=== PATIENT | male | born 1950 | race Hispanic/Latino ===

== ENCOUNTER 2021-01-02 06:42 | Day surgery (SDC) | payer OTHER ==
[2021-01-02] MEDS ORDERED: TROPICAMIDE 1% OPTH 3 ML BOT ONE (07:32)
[2021-01-02] MEDS ORDERED: BALANCED SALT IRRIG PLAIN 500 ML BTL IRR ONE (07:32)
[2021-01-02] MEDS ORDERED: EPINEPHRINE/PF 1 MG/ML AMP ONE (07:32)
[2021-01-02] MEDS ORDERED: TETRACAINE HCL 0.5% 4ML OPTH ONE (07:32)
[2021-01-02] MEDS ORDERED: NA CHLORIDE 0.9% 1,000 ML ONE (07:33)
[2021-01-02] MEDS ORDERED: CYCLOPENTOLATE 2% OPTH 2 ML ONE (07:33)
[2021-01-02] MEDS ORDERED: KETOROLAC OPTHALMIC 5 ML BOT ONE (07:33)
[2021-01-02] MEDS ORDERED: POVIDONE-IODINE 5% EYE DROPS ONE (07:33)
[2021-01-02] MEDS ORDERED: MOXIFLOXACIN HCL 0.5% 3ML OPTH OPTH ONE (07:33)
[2021-01-02] MEDS ORDERED: PHENYLEPHRINE 2.5% OPTH 2 ML ONE (07:34)
[2021-01-02] MEDS ORDERED: LIDOCAINE HCL/PF 3.5% OPTH GEL ONE ×2 (07:55→07:56)
[2021-01-02] MEDS ORDERED: LIDOCAINE 1% MPF 5 ML VIAL ONE (08:06)
[2021-01-02] MEDS ORDERED: propofoL 200 MG/20 ML VIAL IV ONE (08:06)
[2021-01-02] MEDS ORDERED: FENTANYL CITR 100 MCG/2 ML ONE (08:06)
[2021-01-02] MEDS: TOBRADEX 0.3-0.1% OPTH OINTMENT ONE ×2 (08:09→08:40)
[2021-01-02] MEDS: DUOVISC 1 KIT OPTH ONE ×4 (08:15→08:38)
[2021-01-02] MEDS ORDERED: dexAMETHasone 10 MG/ML VIAL ONE (08:18)
[2021-01-02] MEDS ORDERED: KETOROLAC 30 MG/ML INJ ONE (08:18)
[2021-01-02] MEDS ORDERED: MANNITOL 25% 12.5 GM/50 ML VIAL IV ONE (08:27)
[2021-01-02] MEDS ORDERED: Phenylephrine HCl 10 MG/ML 1 ML VIAL ONE (08:32)
[2021-01-02] MEDS ORDERED: ONDANSETRON 4 MG/2 ML VIAL ONE (08:32)
[2021-01-02] MEDS ORDERED: NS 0.9% VIAL 10 ML ONE (08:33)
[2021-01-02] MEDS ORDERED: NA CHLORIDE 0.9% 50 ML ONE (09:08)
[2021-01-02 09:35] VITALS: BP 115/71; TEMP 98.4; O2SAT 100
--- NOTE | 2021-01-02 10:42 | OP ---
Date of Procedure: 01/02/2021 Surgeon: Charles Galan MD Preoperative Diagnosis: Visually significant cataract, right eye. Postoperative Diagnosis: Visually significant cataract, right eye. Procedure Performed: Complex cataract extraction of right eye with placement of intraocular hooks se condary to poor dilation. Procedure In Detail: After being properly identified in the preoperative holding area, the patient w as taken back to the operating room where a time-out was performed. The patient was then prepped and draped in the normal sterile fashion. Examination underneath the operating microscope revealed a po bita dilated pupil, which was anticipated given the preoperative evaluation in the office. Therefore , the decision to use iris hooks was made and the globe was grasped with a pair of 0.12 forceps and 6 paracentesis wounds were made, 1 in the 12 o'clock and 6 o'clock positions for secondary instrumenta tion and then 1 in the each quadrant for placement of the iris hooks. Viscoat was instilled into the anterior chamber and then iris hooks were placed in each of the paracentesis ports as noted above an d the iris looped and drawn taut to enlarge the pupil. The globe was then dressed again with another pair of 0.12 forceps and a tight plantar incision made temporally using a 2.75 mm keratome. A jem nuous curvilinear capsulorrhexis was created with a cystotome and completed with Utrata forceps. Hyd rodissection, hydrodelineation of the lens nucleus was carried out using a Holly cannula. The lens w as thereafter removed in a standard divide and conquer technique. Of significant note after the fernando luis enrique of the first quadrant, there was noted to be an anterior capsule split nasally and additional Vis coat was added. The remaining quadrants were removed uneventfully with careful attention had to redu ce any excess manipulation or put any strain on the capsular tear. Once all 4 quadrants had been rem luis eduardo, prior to the phaco handpiece being removed, additional viscoelastic was added. Very little cor tical material remained, but that was removed using bimanual irrigation and aspiration handpieces. T he capsular split although noted still amenable either sufficient capsular support to support the in the bag lens that we had selected previously and a 23.5 power, model [id number] lens, serial #[id number] was placed into the capsular bag. Because of the rotation of the split, the lens haptics were rotat ed and so they were oriented in the 12 and 6 o'clock position rather than my usual preferred 3 and 9 with the lens centered well and experience good support. The remaining viscoelastic was gently remov ed using bimanual irrigation and aspiration handpiece. Once all 4 hooks had been removed and a singl e 10-0 nylon suture was placed through the temporal incision. The temporal iris did prolapse several times during the procedure and there was a little iris transillumination defect noted temporally. I n addition to the suture being placed in order to equalize the pressure of the globe, I ordered IV ma nnitol to be given to the patient over the next 30-60 minutes and he was taken to the postoperative h olding area in stable condition having tolerated the procedure well. Drapes had been removed and a p ressure patch applied over TobraDex ointment. He is to follow up with myself, Dr. Charles Galan, at the [facility] tomorrow morning. There were no complications other than the anterior capsule split noted above. No specimens were sent. No drains were placed. Implants are as above as well. TASHG/MODL Voice ID: [id number] Report ID: [id number]
== END 2021-01-02 10:19 | disposition home or self-care (01) ==
LOC: OR 06:42
PROVIDERS: ATTEND Ophthalmology
PROC: 08RJ3JZ Replacement of Right Lens with Synthetic Substitute, Percutaneous Approach (ICD-10-PCS; principal; 2021-01-02 07:30)
DX: H26.9 Unspecified cataract (principal); H54.50 Low vision, one eye, unspecified eye; Z20.822 Contact with and (suspected) exposure to COVID-19
CPT/HCPCS: 82947 ×2; 66982; U0002; J2704; J0171; J2150; J2370; J3010; J1100; J7030; J2405